=== PATIENT | female | born 1945 | race Hispanic/Latino ===

== ENCOUNTER 2025-03-16 20:44 | Emergency (ER) | payer MEDICARE ==
[~2025-03-16] VITALS: Ht 152.4 cm; Wt 63.5 kg
[2025-03-16 20:46] VITALS: BP 204/79; PULSE 94; RESP 20; TEMP 98
--- NOTE | 2025-03-16 21:50 | HMCIMG ---
Exam Type: WRIST COMP 3+VWS RT Clinical Information: WRIST PAIN, FALL Comparison: None Findings: The bone examination is unremarkable. No fractures or dislocations are seen. No radiopaque foreign bodies are noted. Soft tissues are preserved. IMPRESSION: Normal examination.
--- NOTE | 2025-03-16 22:05 | ERN ---
ED Note History of Present Illness Stated Complaint: WRIST INJURY, BACK PAIN Chief Complaint: Mechanical Fall Time Seen by MD: 20:56 Time Seen by Midlevel: 20:58 Dictation: 80-YEAR-OLD FEMALE COMING IN WITH COMPLAINTS OF RIGHT WRIST PAIN STATUS POST FA LL. PATIENT STATES SHE WAS IN THE RESTROOM BENT OVER TO CHAIR INSPECTOR AND LEVELER ALL OF RUG AND FELL FORWARD. DENIES ANY HEAD INJURY, NO LOC, NO BLOOD THINNERS. PATIENT'S ONLY COMPLAINT IS RIGHT WRIST PAIN. PATIENT DENIES ANY BACK PAIN AT THE TIME OF MY ASSESSMENT. Allergies: Coded Allergies: codeine (Unverified Allergy, Unknown, 03/16/25) Past Medical History Past Medical History: Other Additional Past Medical Hx: TENSION HEADACHES Surgical History: Cholecystectomy, Other Surgical History Other: RT ARM Review of System Dictation CONSTITUTIONAL: NEGATIVE FOR FEVER,CHILLS, AND WEIGHT LOSS EYES: NEGATIVE FOR INJURY, PAIN,REDNESS, AND DISCHARGE ENT: NEGATIVE FOR INJURY,PAIN OR SWELLING CARDIOVASCULAR: NEGATIVE FOR CHEST PAIN, PALPITATIONS, AND EDEMA RESPIRATORY: NEGATIVE FOR SHORTNESS OF BREATH, COUGH, AND WHEEZING, ABDOMEN/GI: NEGATIVE FOR ABDOMINAL PAIN, NAUSEA, VOMITING, DIARRHEA, AND CONSTIPATION BACK: NEGATIVE FOR INJURY AND PAIN : NEGATIVE FOR INJURY, BLEEDING AND DISCHARGE MS/EXTREMITY: COMPLAINING OF RIGHT WRIST PAIN SKIN: NEGATIVE FOR RASH, AND DISCOLORATION NEURO: NEGATIVE FOR HEADACHE, WEAKNESS, NUMBNESS, TINGLING, AND SEIZURE PSYCH: NEGATIVE FOR SUICIDE IDEATION, HOMICIDAL IDEATION, AND HALLUCINATIONS Review of Systems: was completed Initial Vital Sign VS Vital Signs Date Time Temp Pulse Resp B/P (MAP) Pulse Ox O2 Delivery O2 Flow Rate FiO2 03/16/25 20:46 98.1 94 20 204/79 98 Room Air Physical Exam Dictation GENERAL: AWAKE, ALERT, NAD HEAD/FACE: NORMOCEPHALIC, ATRAUMATIC EYES: PERRL, EOMI, VISION AT BASELINE ENT: ORAL CAVITY CLEAR, TMS CLEAR, NO SIGNS OF INFECTION NECK: TRACHEA MIDLINE, SUPPLE, NO NUCHAL RIGIDITY CARDIOVASCULAR: RRR, NORMAL S1/S2, NO MRGS, NO JVD RESPIRATORY: CTAB, NO RESPIRATORY DISTRESS, NO RALES OR WHEEZES ABDOMEN: SOFT, NON-TENDER, NON-DISTENDED, NORMAL BOWEL SOUNDS, NO GUARDING OR REBOUND. SKIN: WARM, DRY, NORMAL TURGOR, NO RASH MS/EXTREMITY: PULSES EQUAL, NO CYANOSIS, NEUROVASCULAR INTACT, FROM NEURO: COAX4, GCS 15, STRENGTH 5/5, CN 2-12 INTACT, NORMAL CEREBELLAR EXAM, NORMAL GAIT, PSYCH: NORMAL BEHAVIOR, MOOD, AND AFFECT NORMAL Results (Laboratory/Radiology) X-RAY Comment: [facility] [address] [place], [place] [id number] IMAGING REPORT Signed PATIENT: MANPREET SLOAN MR#: [id number] : 1945 SEX: F AGE: 80 LOCATION: [facility] ORDER 01 STATUS: REG ER REPORT#: [id number] SERVICE 00 REASON: WRIST PAIN, FALL ORDERING PHYSICIAN: MADAI RAO NP PROCEDURE: WRST 3V RT - WRIST COMP 3+VWS RT Exam Type: WRIST COMP 3+VWS RT Clinical Information: WRIST PAIN, FALL Comparison: None Findings: The bone examination is unremarkable. No fractures or dislocations are seen. No radiopaque foreign bodies are noted. Soft tissues are preserved. IMPRESSION: Normal examination. DICTATED BY: ANDREW RAHMAN MD DATE: 03/16/252146 ELECTRONICALLY SIGNED BY: ANDREW RAHMAN MD DATE: 03/16/252149 ED Course ED Course Orders Procedure Category Date Status Time Wrist Comp 3+Vws Rt RAD 03/16/25 Resulted 21:01 Vital Signs Date Time Temp Pulse Resp B/P (MAP) Pulse Ox O2 Delivery O2 Flow Rate FiO2 03/16/25 20:46 98.1 94 20 204/79 98 Room Air Medical Decision Making MDM MDM:80-YEAR-OLD FEMALE COMING IN WITH COMPLAINTS OF RIGHT WRIST PAIN STATUS POST FALL. PATIENT STATES SHE WAS IN THE RESTROOM BENT OVER TO CHAIR INSPECTOR AND LEVELER ALL OF RUG AND FELL FORWARD. DENIES ANY HEAD INJURY, NO LOC, NO BLOOD THINNERS. PATIENT'S ONLY COMPLAINT IS RIGHT WRIST PAIN. PATIENT DENIES ANY BACK PAIN AT THE TIME OF MY ASSESSMENT. ADMIT PHYSICAL EXAM THERE IS NO TENDERNESS TO C-SPINE T-SPINE OR L-SPINE. NO HIP PAIN. DENIES ANY BACK PAIN. X-RAY OF THE WRIST WITHIN NORMAL RANGE. PB BANDAGE APPLIED WITH A SLING. DISCUSSED FOLLOW UP WITH PCP IN 1-2 DAYS. DIFFERENTIAL DIAGNOSIS: RIGHT WRIST CONTUSION, RADIAL ULNAR FRACTURE, WRIST SPRAIN RATIONALE: TESTS CONSIDERED AND ORDERED SECONDARY TO SHARED DECISION MAKING INCLUDE: PREVIOUS OUTSIDE RECORDS REVIEWED: OLD ER VISITS. RISK OF COMPLICATION AND/OR MORBIDITY OR MORTALITY OF PATIENT MANAGEMENT: NONE MEDICATIONS-PER MEDICATION RECONCILIATION NEED FOR HOSPITALIZATION: PATIENT DOES NOT MEET CRITERIA FOR HOSPITALIZATION. NEED FOR EMERGENCY MAJOR/MINOR SURGERY: NO THERE ARE NO SOCIAL CONCERNS WITH THIS PATIENT. PRESCRIPTION DRUG MANAGEMENT PRESCRIPTIONS WILL INCLUDE SYMPTOMATIC CARE PATIENT'S PRIOR EXTERNAL MEDICAL RECORDS FROM OTHER ER VISITS WERE REVIEWED BY ME INDICATED. PRIOR TESTING AND RESULTS FROM PREVIOUS VISITS WERE REVIEWED. PRIOR TESTS WERE TAKEN INTO ACCOUNT WITH MEDICAL DECISION MAKING AND RESOURCE UTILIZATION, INDEPENDENT HISTORIAN/HISTORIANS WERE USED TO OBTAIN COMPLETE MEDICAL HISTORY. I INDEPENDENTLY INTERPRETED THE TEST THAT WERE PERFORMED, RESULTS WERE REVIEWED BY ME AND CONSIDERED FINDINGS ON RADIOLOGY IF ORDERED. MEDICAL MANAGEMENT AND EXAMINATION INTERPRETATION DISCUSSIONS WERE HAD BY ME WITH OTHER QUALIFIED HEALTHCARE PROFESSIONALS INDICATED FOR THE PATIENT'S CARE. DX & DISP Disposition: Discharge Departure Impression: Primary Impression: Wrist sprain Condition: Stable Additional Instructions: TAKE TYLENOL OR MOTRIN [id number] FOR PAIN CONTROL. FOLLOW UP WITH YOUR PRIMARY DOCTOR IN 1-2 DAYS. Referrals: GIULIANO LANCE MD (PCP) Time of Disposition: 22:10 I have reviewed the case, and I agree with, Diagnosis and Plan MADAI RAO NP March 16, 2025 22:05
== END 2025-03-16 22:22 | disposition home or self-care (01) ==
LOC: EDH 20:44
DX: S63.591A Other specified sprain of right wrist, initial encounter (principal); W18.39XA Other fall on same level, initial encounter; Y93.89 Activity, other specified; Y92.89 Other specified places as the place of occurrence of the external cause; Y99.8 Other external cause status
CPT/HCPCS: 73110; 99283